=== PATIENT | male | born 1985 | race Caucasian/White ===

== ENCOUNTER 2023-08-19 19:50 | Inpatient (IN) | payer MEDICARE, OTHER ==
[~2023-08-19] VITALS: Ht 157.5 cm; Wt 35.4 kg
[2023-08-19] MEDS ORDERED: levETIRAcetam IV 500 MG in IV DEXTROSE 5% 100 ML IV ONE (20:00)
[2023-08-19] MEDS ORDERED: CEFTRIAXONE 1 G in IV DEXTROSE 5% 50 ML IV ONE (20:00)
[2023-08-19] MEDS ORDERED: CEFTRIAXONE /D5W 50ML IVPB **ER PYXIS IV ONE (20:10)
[2023-08-19] MEDS ORDERED: levETIRAcetam 500 MG/5 ML VIAL IV ONE (20:10)
[2023-08-19 21:00] LABS: BASOPHILS # (AUTO) 0.1 K/UL (0.0-0.2); BASOPHILS % (AUTO) 0.8 % (0.0-2.0); EOSINOPHILS # (AUTO) 0.3 K/uL (0.0-0.7); EOSINOPHILS % (AUTO) 4.1 % (0.0-7.0); HEMATOCRIT 39.4 % (36.7-47.1); HEMOGLOBIN 13.7 g/dL (12.5-16.3); LYMPHOCYTES # (AUTO) 1.5 K/uL (0.8-4.8); LYMPHOCYTES % (AUTO) 22.4 % (20.5-51.5); MEAN CORPUSCULAR HEMOGLOBIN 30.1 uug (23.8-33.4); MEAN CORPUSCULAR HGB CONC 35 g/dL (32.5-36.3); MEAN CORPUSCULAR VOLUME 86.6 fL (73.0-96.2); MONOCYTES # (AUTO) 0.6 K/uL (0.1-1.30); MONOCYTES % (AUTO) 8.9 % (0.0-11.0); NEUTROPHILS # (AUTO) 4.3 K/uL (1.8-8.9); NEUTROPHILS % (AUTO) 63.8 % (38.5-71.5); PLATELET COUNT (AUTO) 269 K/uL (152-348); RED BLOOD CELL COUNT(AUTO) 4.55 MIL/uL (4.06-5.63); RED CELL DISTRIBUTION WIDTH 13.7 % (12.1-16.2); WHITE BLOOD COUNT (AUTO) 6.7 K/uL (3.6-10.2)
[2023-08-19 21:02] LABS: DIFFERENTIAL COMMENT 1
[2023-08-19 21:08] LABS: CALCIUM 9.5 mg/dL (8.5-10.1); CARBON DIOXIDE 26 mmol/L (21-32); CHLORIDE 90 mmol/L (98-107); CREATININE 0.4 mg/dL (0.6-1.3); GLUCOSE 105 mg/dL (74-106); POTASSIUM 3.7 mmol/L (3.5-5.1); SODIUM SERUM 125 mmol/L (136-145); UREA NITROGEN, BLOOD 5 mg/dL (7-18)
[2023-08-19 21:21] LABS: ALANINE AMINOTRANSFERASE 41 U/L (16-63); ALKALINE PHOSPHATASE 225 U/L (50-136); ASPARTATE AMINOTRANSFERASE 23 U/L (15-37); BILIRUBIN,DIRECT 0.2 mg/dL (0.0-0.2); BILIRUBIN,TOTAL 0.4 mg/dL (0.2-1.0); NT-PRO BNP 78 pg/mL (0-125); TOTAL PROTEIN, SERUM 8.1 g/dL (6.4-8.2)
[2023-08-19] MEDS ORDERED: LEVE250T2 GT (22:08)
[2023-08-19] MEDS ORDERED: PANT40TA49 GT (22:08)
[2023-08-19] MEDS ORDERED: OXCA150T5 GT (22:08)
[2023-08-19] MEDS ORDERED: PRAZ1CAP5 GT (22:09)
[2023-08-19] MEDS ORDERED: ACETAMINOPHEN 650 MG SUPP.RECT RC PRN (22:45)
[2023-08-19] MEDS ORDERED: LORAZEPAM 2 MG/1 ML VIAL IV PRN (22:45)
[2023-08-20 03:30] VITALS: BP 117/58; TEMP 97.2; O2SAT 100
[2023-08-20] MEDS: IV D5/ 0.9% NACL 1,000 ML IV PRN ×2 (04:36→18:37)
[2023-08-20 08:40] LABS: BASOPHILS # (AUTO) 0.1 K/UL (0.0-0.2); BASOPHILS % (AUTO) 1.2 % (0.0-2.0); EOSINOPHILS # (AUTO) 0.2 K/uL (0.0-0.7); HEMOGLOBIN 13.4 g/dL (12.5-16.3); LYMPHOCYTES # (AUTO) 1.6 K/uL (0.8-4.8); MEAN CORPUSCULAR HEMOGLOBIN 29.9 uug (23.8-33.4); MEAN CORPUSCULAR HGB CONC 35 g/dL (32.5-36.3); MEAN CORPUSCULAR VOLUME 86.8 fL (73.0-96.2); MONOCYTES # (AUTO) 0.6 K/uL (0.1-1.30); MONOCYTES % (AUTO) 10.6 % (0.0-11.0); NEUTROPHILS # (AUTO) 3.1 K/uL (1.8-8.9); NEUTROPHILS % (AUTO) 56.2 % (38.5-71.5); PLATELET COUNT (AUTO) 269 K/uL (152-348); RED BLOOD CELL COUNT(AUTO) 4.49 MIL/uL (4.06-5.63); RED CELL DISTRIBUTION WIDTH 13.5 % (12.1-16.2); WHITE BLOOD COUNT (AUTO) 5.6 K/uL (3.6-10.2)
[2023-08-20 08:44] LABS: DIFFERENTIAL COMMENT 1
[2023-08-20] MEDS ORDERED: PANTOPRAZOLE SODIUM 40 MG VIAL IV SCH (09:00)
[2023-08-20] MEDS ORDERED: levETIRAcetam IV 1,000 MG in IV DEXTROSE 5% 100 ML IV SCH (09:00)
[2023-08-20 09:06] LABS: ALANINE AMINOTRANSFERASE 41 U/L (16-63); ALBUMIN 3.6 g/dL (3.4-5.0); ALKALINE PHOSPHATASE 215 U/L (50-136); ASPARTATE AMINOTRANSFERASE 21 U/L (15-37); BILIRUBIN,TOTAL 0.3 mg/dL (0.2-1.0); CALCIUM 9.2 mg/dL (8.5-10.1); CARBON DIOXIDE 25 mmol/L (21-32); CHLORIDE 95 mmol/L (98-107); CREATINE KINASE, TOTAL 38 U/L (39-308); CREATININE 0.5 mg/dL (0.6-1.3); GLUCOSE 99 mg/dL (74-106); MAGNESIUM 2.4 mg/dL (1.8-2.4); PHOSPHOROUS 3.6 mg/dL (2.5-4.9); POTASSIUM 3.8 mmol/L (3.5-5.1); SODIUM SERUM 128 mmol/L (136-145); TOTAL PROTEIN, SERUM 7.8 g/dL (6.4-8.2); UREA NITROGEN, BLOOD 5 mg/dL (7-18)
[2023-08-20 09:07] LABS: IRON, SERUM 66 ug/dL (50-175)
[2023-08-20 09:09] LABS: THYROID STIMULATING HORMONE 1.907 mIU/mL (0.358-3.740)
[2023-08-20 09:41] LABS: CHOLESTEROL 151 mg/dL (<200); HDL CHOLESTEROL 63 mg/dL (40-60); TRIGLYCERIDES 47 MG/DL (30-150)
[2023-08-20 11:50] VITALS: BP 100/67; TEMP 98.3; O2SAT 100
[2023-08-20] MEDS: OXCARBAZEPINE 300 MG TABLET GT SCH ×2 (12:06→17:32)
[2023-08-20] MEDS ORDERED: JEVITY 1.2 1000 ML LIQUID GT PRN (12:30)
[2023-08-20] MEDS ORDERED: PANT40TA2 PEG (15:53)
[2023-08-20] MEDS ORDERED: OXCA300O5 PEG (15:54)
[2023-08-20] MEDS ORDERED: LEVE500S9 PEG (15:55)
[2023-08-20] MEDS ORDERED: LACT10SO58 PEG (15:56)
[2023-08-20 15:57] VITALS: BP 96/61; TEMP 97.7; O2SAT 99
[2023-08-20] MEDS ORDERED: FINA5TAB11 PO (15:57)
[2023-08-20] MEDS ORDERED: PANT40SU2 GT (15:59)
[2023-08-20 20:04] VITALS: BP 119/63; TEMP 97.5; O2SAT 98
[2023-08-20] MEDS: levETIRAcetam 500 MG TABLET GT SCH (21:27)
[2023-08-20 22:41] LABS: *BILIRUBIN,URIN NEGATIVE (NEGATIVE); *BLOOD, URINE NEGATIVE (NEGATIVE); *COLOR,URINE YELLOW (YELLOW); *KETONES,URINE NEGATIVE (NEGATIVE); *PROTEIN,URINE NEGATIVE (NEGATIVE); *UROBILINOGEN,URINE 0.2 E.U./dl (NORMAL); LEUKOCYTE ESTERASE ,URINE 1+ (NEGATIVE); NITRITE, URINE NEGATIVE (NEGATIVE); UGLUCOSE NEGATIVE (NEGATIVE)
[2023-08-20 23:00] LABS: *CLARITY,URINE HAZY (CLEAR)
[2023-08-20 23:05] LABS: *SODIUM RNDM,URINE 70 mmol/L (40-220)
[2023-08-20 23:25] LABS: BACTERIA,URINE FEW /HPF (NONE SEEN); SQUAMOUS EPITHELIAL CELL,UR NONE SEEN /HPF (NONE SEEN)
[2023-08-21 00:02] VITALS: BP 120/69; TEMP 97.6; O2SAT 100
[2023-08-21 04:31] VITALS: BP 99/62; TEMP 97.6; O2SAT 100
[2023-08-21 06:52] LABS: CALCIUM 9.1 mg/dL (8.5-10.1); CARBON DIOXIDE 27 mmol/L (21-32); CHLORIDE 102 mmol/L (98-107); CREATININE 0.5 mg/dL (0.6-1.3); GLUCOSE 124 mg/dL (74-106); MAGNESIUM 2.4 mg/dL (1.8-2.4); PHOSPHOROUS 3.6 mg/dL (2.5-4.9); POTASSIUM 3.9 mmol/L (3.5-5.1); SODIUM SERUM 138 mmol/L (136-145); UREA NITROGEN, BLOOD 4 mg/dL (7-18); URIC ACID 1.5 mg/dL (3.5-7.2)
[2023-08-21] MEDS: IV D5/ 0.9% NACL 1,000 ML IV PRN ×2 (07:00→21:25)
[2023-08-21 07:14] LABS: THYROID STIMULATING HORMONE 1.626 mIU/mL (0.358-3.740)
[2023-08-21] MEDS: levETIRAcetam 500 MG TABLET GT SCH ×2 (08:36→21:07)
[2023-08-21] MEDS: OXCARBAZEPINE 300 MG TABLET GT SCH ×2 (08:36→16:19)
[2023-08-21] MEDS: JEVITY 1.2 1000 ML LIQUID GT PRN (08:36)
[2023-08-21] MEDS: PANTOPRAZOLE ORAL SUSPENSION 40 MG SUSPDR.PKT GT SCH (08:36)
[2023-08-21 11:27] VITALS: BP 102/69; TEMP 97.6; O2SAT 100
[2023-08-21] MEDS: FINASTERIDE 5 MG TABLET GT SCH (11:39)
[2023-08-21] MEDS: LACTULOSE 20 G/30 ML LIQUID UDC GT SCH (11:39)
[2023-08-21 15:11] VITALS: BP 133/80; TEMP 98.2; O2SAT 100
[2023-08-21 20:00] VITALS: BP 109/63; TEMP 97.5; O2SAT 97
[2023-08-22 04:00] VITALS: BP 102/68; TEMP 98.3; O2SAT 97
[2023-08-22 07:11] LABS: BASOPHILS # (AUTO) 0.1 K/UL (0.0-0.2); BASOPHILS % (AUTO) 1.1 % (0.0-2.0); EOSINOPHILS # (AUTO) 0.4 K/uL (0.0-0.7); EOSINOPHILS % (AUTO) 6.8 % (0.0-7.0); HEMATOCRIT 34.5 % (36.7-47.1); HEMOGLOBIN 11.8 g/dL (12.5-16.3); LYMPHOCYTES # (AUTO) 1.6 K/uL (0.8-4.8); LYMPHOCYTES % (AUTO) 27.2 % (20.5-51.5); MEAN CORPUSCULAR HEMOGLOBIN 29.9 uug (23.8-33.4); MEAN CORPUSCULAR HGB CONC 34 g/dL (32.5-36.3); MEAN CORPUSCULAR VOLUME 87.2 fL (73.0-96.2); MONOCYTES # (AUTO) 0.6 K/uL (0.1-1.30); MONOCYTES % (AUTO) 9.8 % (0.0-11.0); NEUTROPHILS # (AUTO) 3.3 K/uL (1.8-8.9); NEUTROPHILS % (AUTO) 55.1 % (38.5-71.5); PLATELET COUNT (AUTO) 247 K/uL (152-348); RED BLOOD CELL COUNT(AUTO) 3.95 MIL/uL (4.06-5.63); RED CELL DISTRIBUTION WIDTH 13.9 % (12.1-16.2)
[2023-08-22 07:17] LABS: DIFFERENTIAL COMMENT 1
[2023-08-22 07:42] LABS: CALCIUM 9.3 mg/dL (8.5-10.1); CARBON DIOXIDE 29 mmol/L (21-32); CHLORIDE 102 mmol/L (98-107); CREATININE 0.4 mg/dL (0.6-1.3); GLUCOSE 129 mg/dL (74-106); MAGNESIUM 2.3 mg/dL (1.8-2.4); PHOSPHOROUS 4.3 mg/dL (2.5-4.9); POTASSIUM 3.7 mmol/L (3.5-5.1); SODIUM SERUM 139 mmol/L (136-145); UREA NITROGEN, BLOOD 5 mg/dL (7-18)
[2023-08-22 08:00] VITALS: BP 110/70; TEMP 98.3; O2SAT 99
[2023-08-22] MEDS: JEVITY 1.2 1000 ML LIQUID GT PRN (08:22)
[2023-08-22] MEDS: PANTOPRAZOLE ORAL SUSPENSION 40 MG SUSPDR.PKT GT SCH (09:12)
[2023-08-22] MEDS: LACTULOSE 20 G/30 ML LIQUID UDC GT SCH (09:13)
[2023-08-22] MEDS: levETIRAcetam 500 MG TABLET GT SCH (09:13)
[2023-08-22] MEDS: FINASTERIDE 5 MG TABLET GT SCH (09:13)
[2023-08-22] MEDS: OXCARBAZEPINE 300 MG TABLET GT SCH (09:14)
[2023-08-22] MEDS ORDERED: CEFTRIAXONE 1 G in IV DEXTROSE 5% 50 ML IV SCH (10:00)
[2023-08-22 11:02] VITALS: BP 108/78; TEMP 97.6; O2SAT 98
[2023-08-22] MEDS ORDERED: CIPR-262 PO (12:29)
== END 2023-08-22 15:45 | disposition home or self-care (01) | DRG 100 ==
LOC: ER 19:52 → TELE3 22:24 → MEDSURG3 08-21 14:20
PROVIDERS: ADMIT Internal Medicine; ATTEND Nurse Practitioner Acute Care
PROC: 05HY33Z Insertion of Infusion Device into Upper Vein, Percutaneous Approach (ICD-10-PCS; principal; 2023-08-20)
DX: G40.909 Epilepsy, unspecified, not intractable, without status epilepticus (principal); E43 Unspecified severe protein-calorie malnutrition; R53.2 Functional quadriplegia; E87.1 Hypo-osmolality and hyponatremia; N39.0 Urinary tract infection, site not specified; G91.9 Hydrocephalus, unspecified; G80.8 Other cerebral palsy; B96.89 Other specified bacterial agents as the cause of diseases classified elsewhere; H54.3 Unqualified visual loss, both eyes; H91.3 Deaf nonspeaking, not elsewhere classified; Z98.2 Presence of cerebrospinal fluid drainage device; Z93.1 Gastrostomy status; Z79.899 Other long term (current) drug therapy; H61.23 Impacted cerumen, bilateral; Z88.0 Allergy status to penicillin; Z88.1 Allergy status to other antibiotic agents
CPT/HCPCS: 36415; 70450; 71045; 80299; 82533; 83550; 83605; 83735; 84100; 84300; 84443; 84484; 84550; 85025; 85730; 87040; 93005; C9113; G0378; J0696; J1953; J2060; J7042